=== PATIENT | male | born 2005 | race African-American/Black ===

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

== ENCOUNTER 2024-07-21 10:40 | Emergency (ER) | payer MEDICAID, OTHER ==
[~2024-07-21] VITALS: Ht 167.6 cm; Wt 63.6 kg
--- NOTE | 2024-07-21 10:58 | ED.PDOC ---
Psychiatric HPI Comments 18 year old male TEE presents to the ED with chief complaint of bizarre behavior and right ankle injury. EMS reports that the patient's family has noticed that the patient has been exhibiting erratic behavior with threats of harming his neighbors and SI for the past week. EMS relays that the patient's family called for a wellness check on the patient with a community development officer, however, patient jumped off of his balcony to evade the officer, injuring his right ankle in the process and being tased twice to stop him from fleeing. Patient states he has been experiencing auditory hallucinations with negative thoughts, but has no history of mental health conditions according to EMS and family. Patient admits to marijuana use but denies any other drug use. Patient denies any chest pain, dizziness, LOC, head injury, N/V, or visual diggs ucinations. Time Seen by MD: 10:53 Primary Care Provider: YUN Almonte Notes: Nurses Notes, Clothing Patternmaker Notes, Medications, Allergies Information Source: Patient, Emergency Med Personnel Mode of Arrival: EMS Severity: Able to Care for Self, Able to Control Self Severity of Pain: Moderate Severity of Mental Status: Moderate Severity of Symptoms: Moderate Timing: Weeks Duration: Since onset Prehospital treatment: None Presents with: Unclear Thinking, Bizarre Behavior, Suicidal Ideation Circumstance: Causing a Disturbance Stressors: None History of: None Past Medical History PAST MEDICAL HISTORY: Asthma Surgical History: Denies all surgeries Family History Family History: Reviewed,noncontributory to illness Social History Smoker: Non-Smoker Alcohol: Denies ETOH Use Drugs: Marijuana Lives In: Home Constitutional: denies: chills, diaphoresis, fatigue, fever, malaise, sweats, weakness, others EENTM: denies: blurred vision, double vision, ear bleeding, ear discharge, ear drainage, ear pain, ear ringing, eye pain, eye redness, hearing loss, mouth pain, mouth swelling, nasal discharge, nose bleeding, nose congestion, nose pain, photophobia, tearing, throat pain, throat swelling, voice changes, others Respiratory: denies: cough, hemoptysis, orthopnea, SOB at rest, shortness of breath, SOB with excertion, stridor, wheezing, others Cardiovascular: denies: chest pain, dizzy spells, diaphoresis, Dyspnea on exertion, edema, irregular heart beat, left arm pain, lightheadedness, palpitations, PND, syncope, others Gastrointestinal: denies: abdomen distended, abdominal pain, blood streaked bowels, constipated, diarrhea, dysphagia, difficulty swallowing, hematemesis, melena, nausea, poor appetite, poor fluid intake, rectal bleeding, rectal pain, vomiting, others Genitourinary: denies: burning, dysuria, flank pain, frequency, hematuria, incontinence, penile discharge, penile sore, pain, testicle pain, testicle swelling, urgency, others Neurological: denies: dizziness, fainting, headache, left sided numbness, left sided weakness, numbness, paresthesia, pre-existing deficit, right sided numbness, right sided weakness, seizure, speech problems, tingling, tremors, weakness, others Musculoskeletal: denies: back pain, gout, joint pain, joint swelling, muscle pain, muscle stiffness, neck pain, others Integumetry: denies: bruises, change in color, change in hair/nails, dryness, laceration, lesions, lumps, rash, wounds, others Allergic/Immunocompromised: denies: Difficulty Healing, Frequent Infections, Hives, Itching, others Hematologic/Lymphatic: denies: anemia, blood clots, easy bleeding, easy bruising, swollen glands, others Endocrine: denies: excessive hunger, excessive sweating, excessive thirst, excessive urination, flushing, intolerance to cold, intolerance to heat, unexplained weight gain, unexplained weight loss, others Psychiatric: reports: anxiety, suicidal, others (Auditory Hallucinations); denies: bipolar disorder, depression, hopeless, panic disorder, schizophrenia, sleepless All Other Systems: Reviewed and Negative Physical Exam General Appearance: Mild Distress HEENT: Other (Pupils and face symmetric. Moist mucous membranes.) Neck: Full Range of Motion, Normal Inspection Respiratory: Lungs Clear, No Accessory Muscle Use, No Respiratory Distress, Normal Breath Sounds Cardiovascular: No Edema, No JVD, Regular Rate/Rhythm Breast Exam: Deferred Gastrointestinal: Non Tender, Soft Genitalia: Deferred Pelvic: Deferred Rectal: Deferred Extremities: Normal inspection, Normal range of motion, No pedal edema, Tender (Right ankle soft tissue tenderness medial aspect) Neurologic: Alert (Oriented x4), Other (Anxious, agitated, appears to be responding to internal stimuli, expressing SI and desire to cause harm to others, confirms auditory hallucinations) Cerebellar Function: NOT DONE Reflexes: NOT DONE Skin: Dry, Normal Color, Warm Lymphatic: NOT DONE Was a procedure done? Was a procedure done?: No Psych Differential Dx Psych. Differential Dx: Anxiety, Bipolar Disorder, Depression, Panic Disorder, Schizoprenia, Sleepless, Suicidal OD Differential Dx: Alcohol Abuse, Substance Abuse Intoxication Differential Dx: Encephalopathy X-Ray, Labs, Meds, VS Vital Signs Date Time Temp Pulse Resp B/P (MAP) Pulse Ox O2 Delivery O2 Flow Rate FiO2 07/21/24 19:26 98.4 77 13 97/64 (75) 97 98.4 07/21/24 19:26 77 13 97 Room Air* 0 21 07/21/24 18:00 57 15 119/73 (88) 98 07/21/24 14:00 60 17 118/67 (84) 97 07/21/24 13:40 98.7 77 12 117/62 (80) 97 98.7 07/21/24 11:15 88 16 98 Room Air* 0 21 07/21/24 11:15 98.4 88 16 135/83 (100) 98 98.4 07/21/24 10:42 98.0 105 20 115/54 (74) 100 98.0 Lab Test 07/21/24 13:10 07/21/24 12:42 07/21/24 10:56 Range/Units Urine Color Light-yellow Yellow Urine Clarity Clear Clear Urine pH 6.0 5.0-9.0 Urine Specific [place] 1.012 1.001-1.035 Urine Protein Negative Negative Urine Ketones Negative Negative Urine Blood Negative Negative /uL Urine Nitrite Negative Negative Urine Bilirubin Negative Negative Urine Urobilinogen Normal Negative mg/dL Urine Leukocyte Esterase Trace Negative /uL Urine RBC 1 0 - 3 /hpf Urine Microscopic WBC 4 H 0-3 /HPF Urine Squamous Epithelial Cells Few <5 /hpf Urine Bacteria None seen None Seen /hpf Urine Hyaline Casts Few 0 - 2 /lpf Urine Mucus Few None Seen Urine Glucose Normal Normal mg/dL Urine Opiates Screen Neg NEGATIVE Urine Fentanyl Screen Neg NEGATIVE Urine Barbiturates Screen Neg NEGATIVE Urine Phencyclidine Screen Neg NEGATIVE Urine Amphetamines Screen Neg NEGATIVE Urine Benzodiazepines Screen Neg NEGATIVE Urine Cocaine Screen Neg NEGATIVE Urine Cannabinoids Screen Pos NEGATIVE Troponin I High Sensitivity 11 12 </=54 ng/L White Blood Count 6.5 4.4-10.8 10^3/uL Red Blood Count 4.91 4.5-5.90 10^6/uL Hemoglobin 15.0 13.5-17.5 g/dL Hematocrit 43.7 41.0-53.0 % Mean Corpuscular Volume 89.0 80.0-100.0 fL Mean Corpuscular Hemoglobin 30.5 28.0-32.0 pg Mean Corpuscular Hemoglobin Concent 34.3 32.0-36.0 g/dL Red Cell Distribution Width 13.2 11.8-14.3 % Platelet Count 242 140-450 10^3/uL Mean Platelet Volume 9.4 6.9-10.8 fL Neutrophils (%) (Auto) 58.8 37.0-80.0 % Lymphocytes (%) (Auto) 29.0 10.0-50.0 % Monocytes (%) (Auto) 8.8 0.0-12.0 % Eosinophils (%) (Auto) 2.7 0.0-7.0 % Basophils (%) (Auto) 0.7 0.0-2.0 % Neutrophils # (Auto) 3.8 1.6-8.6 10 ^3/uL Lymphocytes # (Auto) 1.9 0.4-5.4 10 ^3/uL Monocytes # (Auto) 0.6 0-1.3 10 ^3/uL Eosinophils # (Auto) 0.2 0-0.8 10 ^3/uL Basophils # (Auto) 0 0-0.2 10 ^3/uL Nucleated Red Blood Cells 0.1 % Sodium Level 144 136-145 mmol/L Potassium Level 3.2 L 3.5-5.1 mmol/L Chloride Level 106 98-107 mmol/L Carbon Dioxide Level 25 20-31 mmol/L Anion Gap 13 5-15 Blood Urea Nitrogen 13 9-23 mg/dL Creatinine 1.17 0.700-1.30 mg/dL Glomerular Filtration Rate Calc 92 >90 mL/min BUN/Creatinine Ratio 11.1 10.0-20.0 Serum Glucose 101 74-106 mg/dL Calcium Level 10.3 8.7-10.4 mg/dL Total Bilirubin 0.8 0.2-1.0 mg/dL Aspartate Amino Transferase (AST) 71 H 13-40 U/L Alanine Aminotransferase (ALT) 35 7-40 U/L Alkaline Phosphatase 96 46-116 U/L B-Type Natriuretic Peptide 4.67 0-100 pg/mL Total Protein 7.6 5.7-8.2 g/dL Albumin 5.0 H 3.2-4.8 g/dL Salicylates Level < 3.0 -30 mg/dL Acetaminophen Level 3.0 L 10.0-20.0 UG/ML Plasma/Serum Blood Alcohol < 3.0 <10 mg/dL Current Medications Medications (Trade) Dose Ordered Sig/Misty Route Start Time Stop Time Status Last Admin Sodium Chloride 1,000 ml @ 1,000 mls/hr Q1H ONCE IV 07/21/24 11:00 07/21/24 11:59 DC 07/21/24 11:23 Lorazepam (Ativan Inj) 1 mg ONCE ONCE IV 07/21/24 11:00 07/21/24 11:01 DC 07/21/24 11:25 Olanzapine (ZyPREXA Tablet) 20 mg ONCE ONCE PO 07/21/24 11:00 07/21/24 11:01 DC 07/21/24 11:23 Diphenhydramine HCl (Benadryl Injection) 25 mg ONCE ONCE IV 07/21/24 11:00 07/21/24 11:01 DC 07/21/24 11:25 Ketorolac Tromethamine (Toradol Injection) 15 mg ONCE ONCE IV 07/21/24 11:00 07/21/24 11:01 DC 07/21/24 11:24 Potassium Bicarbonate (Klor-Con/Ef) 50 meq ONCE ONCE PO 07/21/24 13:15 07/21/24 13:16 DC 07/21/24 13:19 Right Ankle XR: No acute fracture or dislocation of the right ankle. X-Ray, Labs, Meds, VS Comment 18-year-old male with no significant past medical history presenting with normal behavior characterized by agitation, suicidal ideation and thoughts of hurting others, and auditory hallucinations Vitals unremarkable Exam remarkable for agitation, admits to SI, thoughts of hurting others and auditory hallucinations Rhythm strip independently interpreted by me: Sinus tach, rate 109, no ectopy. CBC unremarkable, metabolic panel remarkable for potassium 3.2, Tylenol/salicylate, alcohol level, UA unremarkable. Urine drug screen positive for cannabinoids Patient treated with the following in the ED: 1 L 0.9 normal saline IV bolus, effervescent potassium 50 mEq p.o., Ativan 1 mg IV, Benadryl 25 mg IV, Zyprexa 20 mg p.o. On re-evaluation, patient is resting comfortably and easily arousable. He is medically cleared as of 1343 Plan is to obtain tele psych evaluation. Disposition will be per tele psych recommendations. Case discussed with Dr. Lopez who evaluated the patient via video consultation. He recommended the patient be placed on a hold for grave disability. Plan is to transfer the patient for higher level of care, inpatient psychiatric treatment. Patient will be endorsed to the overnight ED physician pending hold placement in the morning and transfer for psychiatric inpatient treatment. Images Reviewed?: Images reviewed and evaluated by me Time of 1ST Reevaluation: 11:53 Reevaluation 1ST: Unchanged Time of 2ND Reevaluation: 13:44 Reevaluation 2ND: Improved Patient Education/Counseling: Diagnosis, Treatment Family Education/Counseling: No Family Present Departure 1 Departure Time of Disposition: 13:44 Impression: Primary Impression: Acute psychosis Disposition: 30 STILL A PATIENT Condition: Fair Critical Care Note Critical Care Time?: No Stability Stability form required: No Heart Score Heart Score: Heart Score Response (Comments) Value History N/A 0 EKG N/A 0 Age N/A 0 Risk Factors N/A 0 Troponin N/A 0 Total 0 I personally scribed for AGUILA PERKINS MD ([email or web address]) on 07/21/24 at 10:58. Electronically submitted by Bill Nayak ([email or web address]). I personally scribed for AGUILA PERKINS MD ([email or web address]) on 07/21/24 at 13:32. Electronically submitted by Bill Nayak ([email or web address]). AGUILA PERKINS MD Jul 21, 2024 10:58
[2024-07-21 11:15] VITALS: PULSE 88; RESP 16; O2SAT 98
[2024-07-21 11:18] LABS: Basophils # (auto) 0 10 ^3/uL (0-0.2); Basophils % (auto) 0.7 % (0.0-2.0); Eosinophils # (auto) 0.2 10 ^3/uL (0-0.8); Eosinophils % (auto) 2.7 % (0.0-7.0); Hematocrit 43.7 % (41.0-53.0); Lymphocytes # (auto) 1.9 10 ^3/uL (0.4-5.4); Mean Corpuscular Hemoglobin 30.5 pg (28.0-32.0); Mean Corpuscular Hgb Conc. 34.3 g/dL (32.0-36.0); Monocytes # (auto) 0.6 10 ^3/uL (0-1.3); Monocytes % (auto) 8.8 % (0.0-12.0); Neutrophils # (auto) 3.8 10 ^3/uL (1.6-8.6); Neutrophils % (auto) 58.8 % (37.0-80.0); Nucleated Red Blood Cells % 0.1 %; Platelet Count (auto) 242 10^3/uL (140-450); Red Blood Cells 4.91 10^6/uL (4.5-5.90); Red Cell Distribution Width 13.2 % (11.8-14.3); White Blood Cell 6.5 10^3/uL (4.4-10.8)
[2024-07-21] MEDS: OLANZapine 5 MG TAB PO ONE (11:23)
[2024-07-21] MEDS: SODIUM CHLORIDE 0.9% 1,000 ML IV ONE (11:23)
[2024-07-21] MEDS: KETOROLAC TROMETH 30 MG/ML 1ML VIAL IV ONE (11:24)
[2024-07-21] MEDS: LORazepam 2MG/ML-1ML VIAL IV ONE (11:25)
[2024-07-21] MEDS: diphenhdrAMINE HCL 50 MG/1 ML VL IV ONE (11:25)
[2024-07-21 11:32] LABS: Alanine Aminotransferase 35 U/L (7-40); Alkaline Phosphatase 96 U/L (46-116); Anion Gap 13 (5-15); BUN/Creatinine Ratio 11.1 (10.0-20.0); Bilirubin, Total 0.8 mg/dL (0.2-1.0); Blood Urea Nitrogen 13 mg/dL (9-23); Calcium 10.3 mg/dL (8.7-10.4); Carbon Dioxide 25 mmol/L (20-31); Chloride 106 mmol/L (98-107); Glucose 101 mg/dL (74-106); Sodium 144 mmol/L (136-145); Total Protein 7.6 g/dL (5.7-8.2)
[2024-07-21 11:38] LABS: Aspartate Aminotransferase 71 U/L (13-40); Blood Alcohol < 3.0 mg/dL (<10); Potassium 3.2 mmol/L (3.5-5.1); Salicylate < 3.0 mg/dL (-30)
--- NOTE | 2024-07-21 12:42 | DVH ---
XY R ANKLE 3 VIEW, INDICATION: trauma TECHNICAL DATA:Frontal , oblique and lateral views were obtained of the right ankle. COMPARISON: None FINDINGS: No fracture is identified. Joint spaces are maintained. Alignment is anatomic. Soft tissues are wit hin normal limit. IMPRESSION: No acute fracture or dislocation of the right ankle.
[2024-07-21] MEDS: POTASSIUM EFFERVESENT TAB 25 MEQ PO ONE (13:19)
[2024-07-21 13:26] LABS: Urine Bacteria None Seen /hpf (None Seen)
[2024-07-21 13:35] LABS: Urine Blood Negative /uL (Negative); Urine Clarity Clear (Clear); Urine Color Light-Yellow (Yellow); Urine Hyaline Cast FEW /lpf (0 - 2); Urine Mucus FEW (None Seen); Urine Protein, UAD Negative (Negative); Urine Specific Gravity 1.012 (1.001-1.035); Urine Squamous Epithelial Cell FEW /hpf (<5); Urine Urobilinogen Normal (Negative); Urine WBC 4 /HPF (0-3)
[2024-07-21 13:43] LABS: Phencyclidine Screen, Urine Neg (NEGATIVE)
[2024-07-21 13:44] LABS: Amphetamine Screen, Urine Neg (NEGATIVE); Barbiturate Scree,Urine Neg (NEGATIVE); Benzodiazephine Screen, Urine Neg (NEGATIVE); Cannabinoid Screen, Urine Pos (NEGATIVE); Cocaine Screen, Urine Neg (NEGATIVE); Opiate Scree,Urine Neg (NEGATIVE)
[2024-07-21 19:26] VITALS: PULSE 77; RESP 13; TEMP 98.4; O2SAT 97
--- NOTE | 2024-07-21 20:17 | DVHINCON2 ---
Date of Service if different f: Jul 21, 2024 Consultation ([facility]) Progress: Somewhat better Labs Laboratory Tests Test 07/21/24 10:56 07/21/24 12:42 07/21/24 13:10 White Blood Count 6.5 10^3/uL (4.4-10.8) Red Blood Count 4.91 10^6/uL (4.5-5.90) Hemoglobin 15.0 g/dL (13.5-17.5) Hematocrit 43.7 % (41.0-53.0) Mean Corpuscular Volume 89.0 fL (80.0-100.0) Mean Corpuscular Hemoglobin 30.5 pg (28.0-32.0) Mean Corpuscular Hemoglobin Concent 34.3 g/dL (32.0-36.0) Red Cell Distribution Width 13.2 % (11.8-14.3) Platelet Count 242 10^3/uL (140-450) Mean Platelet Volume 9.4 fL (6.9-10.8) Neutrophils (%) (Auto) 58.8 % (37.0-80.0) Lymphocytes (%) (Auto) 29.0 % (10.0-50.0) Monocytes (%) (Auto) 8.8 % (0.0-12.0) Eosinophils (%) (Auto) 2.7 % (0.0-7.0) Basophils (%) (Auto) 0.7 % (0.0-2.0) Neutrophils # (Auto) 3.8 10 ^3/uL (1.6-8.6) Lymphocytes # (Auto) 1.9 10 ^3/uL (0.4-5.4) Monocytes # (Auto) 0.6 10 ^3/uL (0-1.3) Eosinophils # (Auto) 0.2 10 ^3/uL (0-0.8) Basophils # (Auto) 0 10 ^3/uL (0-0.2) Nucleated Red Blood Cells 0.1 % Sodium Level 144 mmol/L (136-145) Potassium Level 3.2 mmol/L (3.5-5.1) Chloride Level 106 mmol/L (98-107) Carbon Dioxide Level 25 mmol/L (20-31) Anion Gap 13 (5-15) Blood Urea Nitrogen 13 mg/dL (9-23) Creatinine 1.17 mg/dL (0.700-1.30) Glomerular Filtration Rate Calc 92 mL/min (>90) BUN/Creatinine Ratio 11.1 (10.0-20.0) Serum Glucose 101 mg/dL (74-106) Calcium Level 10.3 mg/dL (8.7-10.4) Total Bilirubin 0.8 mg/dL (0.2-1.0) Aspartate Amino Transf (AST/SGOT) 71 U/L (13-40) Alanine Aminotransferase (ALT/SGPT) 35 U/L (7-40) Alkaline Phosphatase 96 U/L (46-116) B-Type Natriuretic Peptide 4.67 pg/mL (0-100) Total Protein 7.6 g/dL (5.7-8.2) Albumin 5.0 g/dL (3.2-4.8) Salicylates Level < 3.0 mg/dL (-30) Acetaminophen Level 3.0 UG/ML (10.0-20.0) Plasma/Serum Blood Alcohol < 3.0 mg/dL (<10) Troponin I High Sensitivity 11 ng/L (</=54) Urine Color Light-yellow (Yellow) Urine Clarity Clear (Clear) Urine pH 6.0 (5.0-9.0) Urine Specific [place] 1.012 (1.001-1.035) Urine Protein Negative (Negative) Urine Ketones Negative (Negative) Urine Blood Negative /uL (Negative) Urine Nitrite Negative (Negative) Urine Bilirubin Negative (Negative) Urine Urobilinogen Normal mg/dL (Negative) Urine Leukocyte Esterase Trace /uL (Negative) Urine RBC 1 /hpf (0 - 3) Urine Microscopic WBC 4 /HPF (0-3) Urine Squamous Epithelial Cells Few /hpf (<5) Urine Bacteria None seen /hpf (None Seen) Urine Hyaline Casts Few /lpf (0 - 2) Urine Mucus Few (None Seen) Urine Glucose Normal mg/dL (Normal) Urine Opiates Screen Neg (NEGATIVE) Urine Fentanyl Screen Neg (NEGATIVE) Urine Barbiturates Screen Neg (NEGATIVE) Urine Phencyclidine Screen Neg (NEGATIVE) Urine Amphetamines Screen Neg (NEGATIVE) Urine Benzodiazepines Screen Neg (NEGATIVE) Urine Cocaine Screen Neg (NEGATIVE) Urine Cannabinoids Screen Pos (NEGATIVE) Appetite: Fair Side effects of medications: No Appearance: Stated age Psychomotor activity: WNL Behavioral: Cooperative Eye contact: Appropriate Speech: WNL Affect: Appropriate Mood: Euthymic Thought processes: Linear/Goal-directed Thought content: WNL Suicidal ideations: Absent Homicidal ideations: Absent Orientation: Person, Place, Time Memory intact: Recent Intellect: Average Abstractability: Marginal Concentration: Adequate Attention: Adequate Judgement: WNL Insight: Limited Vitals Vital Signs Date Time Temp Pulse Resp B/P (MAP) Pulse Ox O2 Delivery O2 Flow Rate FiO2 07/21/24 18:00 57 15 119/73 (88) 98 07/21/24 13:40 98.7 98.7 07/21/24 11:15 Room Air* 0 21 Treatment plan discussed: With staff Medication adjusted: No Labs ordered: No Psychotherapy provided: No Type: Voluntary Diagnosis: Cannabis use disorder severe. F29 - Unspec. psychosis Plan : Case discussed with Dr. Mcdermott who has spoken with the pt's family at length earlier and they told her that the pt has been exhibiting strange behavior for the last 1 week. The pt has been agitated, making suicidal statements, making statements about harming neighbours and that's why they called a wellness check which resulted in the pt bolting from a balcony that is 10 ft high. Pt hurt his ankle and when asked about it he says, it's just swollen, its fine. Pt told Dr. Mcdermott at the time of 1st arrival that he had been hearing voices. Pt made some strange statements of being a man of the people, passersby wanting to take photos with him. 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 But t did spend a lot of time gong over how he is spreading the gospel and how he 'hears' God guiding his actions. He had trouble adam borating exactly what this meant but denied discrete auditory hallucinations to me and said that he felt inspired by his close relationship to God. Despite the close to normal presentation the pt had during the psych eval. It must be noted that the pt did receive 20 mg zyprexa earlier as well as ativan. The pt's family has been noticing symptoms of psychosis and pt is in the age r jose where schizophrenia manifests and, the pt really likes to use cannabis in high quantities. The risk factors and family report that suggest that the pt may be having his 1st psychotic break are quite high and it is likely that the single 20 mg zyprexa dose may have helped him reconstitute his mind when I evaluated him. The most logical course of action in this case is to initiate a 5150 for grave disability as the collateral report from family is highly suggestive of brewing and worsening 1st episode psychosis. History of Present Illness Reason for Consult : Erratic behavior. HPI : 18 y/o male BIB LE to the ED for erratic behavior. Pt was agitated on arrival and received zyprexa 20 mg PO, Ativan IM and benadryl PO. Pt says that he is the calmest person in the world. Pt says that he has a pair of red beats headphones that he lost 2 days ago. Pt says that he took his financial services counselor walk and was trying to find his headphones. Pt says that he spoke to a neighbour. Pt says he is a man of the people and they want to take photos with him. This neighbour always talks to him about his tattoos. PT wants to inspire people spread gospel. 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 Pt says that police pulled up to his house as he was walking into the home and the officer asked to talk to the pt, but he didn't want to talk to him asked him if he was under arrest. He ran into the house, police gave ken, he jumped out of the balcony and the police chased him afterwards as well and they tazed him. Pt said he was going to go to work. Pt says all he did was spread gospel in the streets. When asked about why his family thinks that he is able to see what's in people's mind. sometimes they have disappointment, sometimes, there's hope sometimes ignorance. He didn't used to be social or talk to people much when younger and would make little eye contact. Pt says he lost 7 friends, 3 to gun violence, 2 to car accidents and some other reasons. Pt feels fortunate for having avoided such outcomes - this made him reconsider his stance on connecting with people. Pt says he gets 10 hours of sleep a night. Denies AVH. Denies SI, HI, past suicide attempts or self harm. Past Psychiatric History : Denies all psychiatric history. Family Psych history: Denies. Past Medical History : Asthma. Social History : Pt lives in a family home with 9 other people. It's crowded. Uses cannabis - smokes a blunt with a few hits 2 times a day. 1 blunt lasts 2 days. Pt is not willing to stop using cannabis. Denies other drug use. Pt works as a elementary librarian. Assessment/Diagnosis/Plan Reviewed: Care Plan, Labs, Medications LELA HAYS MD Jul 21, 2024 20:17
[2024-07-21 22:00] VITALS: BP 113/72; PULSE 50; RESP 16; O2SAT 99
== END 2024-07-21 23:50 | disposition left against medical advice (07) ==
LOC: ER 10:40 → EDBD 10:40 → ER 23:50
DX: F23 Brief psychotic disorder (principal); J45.909 Unspecified asthma, uncomplicated; M25.571 Pain in right ankle and joints of right foot; F12.90 Cannabis use, unspecified, uncomplicated
CPT/HCPCS: 36415; 73610; 80053; 80307; 80320; 80329; 81001; 83880; 84484; 85025; 96361; 96374; 96375; 99285; J1200; J1885; J2060; J7030